=== PATIENT | female | born 1980 | race Caucasian/White ===

== ENCOUNTER 2018-08-27 19:33 | Emergency (ER) | payer MEDICAID, OTHER, SELFPAY ==
[~2018-08-27] VITALS: Ht 170.2 cm; Wt 87.9 kg
--- NOTE | 2018-08-27 19:48 | NUR ---
PT PRESENTS TO ED STATES SHE IS 16 WEEKS AND HAS VAGINAL PAIN. "IT FEELS LIKE THERE IS SOMETHING IN MY VAGINA." PT DENIES ANY VB/VD. DENIES ANY CRAMPING/ S/S.
--- NOTE | 2018-08-27 19:52 | NUR ---
PT TO US AT THIS TIME.
[2018-08-27 20:07] LABS: BASOPHILS # (AUTO) 0.05 x10^3/uL (0-0.1); BASOPHILS % (AUTO) 1 % (0-1); EOSINOPHILS # (AUTO) 0.09 x10^3/uL (0-0.4); EOSINOPHILS % (AUTO) 1 % (1-7); LYMPHOCYTES % (AUTO) 25 % (22-44); MD NO; MEAN CORPUSCULAR HEMOGLOBIN 30.8 pg (27.0-34.8); MEAN CORPUSCULAR HGB CONC 33.8 g/dL (32.4-35.8); MEAN CORPUSCULAR VOLUME 91.1 fL (80-100); MONOCYTES # (AUTO) 0.59 x10^3/uL (0.2-0.8); MONOCYTES % (AUTO) 5 % (2-9); NEUTROPHILS # (AUTO) 7.55 x10^3/uL (1.8-6.8); NEUTROPHILS % (AUTO) 69 % (42-75); PLATELET COUNT 330 x10^3/uL (130-400); RED BLOOD COUNT 4.09 x10^6/uL (3.82-5.3); RED CELL DISTRIBUTION WIDTH 12.9 % (9.6-15.2)
[2018-08-27 20:13] LABS: ALANINE AMINOTRANSFERASE 16 U/L (12-78); ALBUMIN 3.1 g/dL (3.4-5.0); ANION GAP 6 mmol/L (5-15); CALCIUM 8.5 mg/dL (8.5-10.1); CHLORIDE 109 mmol/L (98-107); CREATININE 0.63 mg/dL (0.55-1.02)
[2018-08-27 20:31] LABS: ALKALINE PHOSPHATASE 49 U/L (45-117); BILIRUBIN,TOTAL 0.1 mg/dL (0.2-1.0)
[2018-08-27 20:47] VITALS: BP 135/57
[2018-08-27 21:10] LABS: MICROSCOPIC AUTO
[2018-08-27 21:15] LABS: CULTURE INDICATED? NO
== END 2018-08-27 21:38 | disposition home or self-care (01) ==
LOC: ED 20:26
DX: O26.892 Other specified pregnancy related conditions, second trimester (principal); R10.2 Pelvic and perineal pain; Z3A.16 16 weeks gestation of pregnancy
CPT/HCPCS: 36415; 76815; 80053; 81001; 84702; 85025; 99284